=== PATIENT | female | born 1945 | race Caucasian/White ===

== ENCOUNTER 2023-10-04 08:39 | Outpatient (REF) | payer MEDICARE, SELFPAY | END 2023-10-04 08:40 | disposition home or self-care (01) | LOC: HO.SH 08:39 | PROVIDERS: Visit Provider Family Medicine | DX: Z01.118 Encounter for examination of ears and hearing with other abnormal findings (principal); H90.3 Sensorineural hearing loss, bilateral | CPT/HCPCS: 92557 ==

== ENCOUNTER 2023-11-16 14:56 | Outpatient (REF) | payer SELFPAY ==
--- NOTE | 2023-11-17 11:26 | MHC.AU.MED ---
Medical Clearance for Hearing Instrumentation Date: 11/17/23 Patient Name: [place] August Date of : 1945 Primary Care Provider: Cris Vidal MD Referring Provider: Cris Vidal MD We have seen your patient on 11/17/23 and have determined that they are a candidate for amplification (See accompanying report). Specifically, they would benefit from: Hearing aid use in both ears There is a statute that addresses Medical Evaluation Requirements prior to fitting a patient with a hearing aid. According to [place] statute 265 CMR:6.03(1), (a) General. Except as provided in 265 CMR 6.03(1)(b), a hearing aid repair technician shall not sell a hearing aid unless the prospective user has presented to the hearing aid repair technician a written statement signed by a licensed physician that states that the patient's hearing loss has been medically evaluated and the patient may be considered a candidate for a hearing aid. The medical evaluation must have taken place within the preceding six months. Please note: Due to the [place] Statute referenced above, we cannot accept a signature other than that of a licensed physician. POSITION CLERK and PA signatures cannot be accepted. I am in agreement with the above recommendation. There is no medical contraindication for hearing instrumentation. Physician Signature Date Physician Name (Printed)
== END 2023-11-16 14:57 | disposition home or self-care (01) ==
LOC: HO.HAP 14:56
PROVIDERS: PCP Family Medicine; Visit Provider Family Medicine
DX: Z46.1 Encounter for fitting and adjustment of hearing aid (principal); H90.3 Sensorineural hearing loss, bilateral
CPT/HCPCS: 92590; 92591

== ENCOUNTER 2023-12-08 09:26 | Outpatient (REF) | payer SELFPAY | END 2023-12-08 09:27 | disposition home or self-care (01) | LOC: HO.HAP 09:26 | PROVIDERS: Visit Provider Family Medicine | DX: Z46.1 Encounter for fitting and adjustment of hearing aid (principal); H90.3 Sensorineural hearing loss, bilateral | CPT/HCPCS: 92700; V5261; V5299 ==

== ENCOUNTER 2024-01-02 11:09 | Outpatient (REF) | payer SELFPAY | END 2024-01-02 11:10 | disposition home or self-care (01) | LOC: HO.HAP 11:09 | PROVIDERS: Visit Provider Family Medicine | DX: Z13.89 Encounter for screening for other disorder (principal) ==

== ENCOUNTER 2024-11-12 07:49 | Outpatient (REF) | payer MEDICARE, SELFPAY ==
--- OUTSIDE RECORDS SUMMARY | 2024-01-23 05:00 | XMS_ITS ---
Author Organization [facility] Address [address] [place] [address] Care Team Providers Care Mineralogy Professor Name Role Phone Cris Vidal Primary Care Provider UnavailClaire Smith Unavailable [phone] Lorna Escoto Unavailable [phone] Encounters Encounter Location Date Provider Diagnosis [address] [address] 01/23/2024 Lorna Escoto Plan Of Treatment Next Appt Details Provider Name:Claire crowley, 12/16/2024 09:15:00 AM, [address] [place] [address], [phone], Progress Notes * [place] AUGUST HDOB :1945 (79 yo F)Acc No.[id number]:01/23/2024 Progress Note Patient: [place] MANCINI Provider: Osmin Escoto DPM :1945 A ge:78 Y S ex:Female Date:01/23/2024 Address:[address] [place], [place] [id number] Pcp:Cris Vidal Subjective: * Chief Complaints: * * Medical History: Objective: * Vitals: Assessment: Plan: * Treatment: * Images: * The named appointment provid er may or may not be the originator of this progress note, and it is not deemed complete until electronically signed by the appointment provider. Sign off status: Pending * Provider: Osmin Escoto DPM Date: 03/24/2023 Generated for Violette Hare/Mani on: 0 11/12/2024 07:52 AM EDT
--- OUTSIDE RECORDS SUMMARY | 2024-09-16 07:00 | XMS_ITS ---
Author Organization [facility] Address [address] [place] [address] Care Team Providers Care Director Emergency Name Role Phone Cris Vidal Primary Care Provider Claire Mcconnell [phone] Kyle Encounters Encounter Location Date Provider Diagnosis [address] [address] 09/16/2024 Claire Barrios Plan Of Treatment Next Appt Details Provider Name:Claier crowley, 12/16/2024 09:15:00 AM, [address] [place] [address], [phone], Progress Notes * [place] AUGUST HDOB :1945 (79 yo F)Acc No.[id number]:09/16/2024 Progress Note Patient: [place] MANCINI Provider: Byron Barrios DPM :1945 A ge:79 Y S ex:Female Date:09/16/2024 Address:[address] [place], [place] [id number] Pcp:Cris Vidal Subjective: * Chief Complaints: * [address] Kyle. * Medical History: Objective: * Vitals: Assessment: Plan: * Treatment: * Images: * The named appointment provid er may or may not be the originator of this progress note, and it is not deemed complete until electronically signed by the appointment provider. Sign off status: Pending * Provider: Byron Barrios DPM Date: 0 09/16/2024 Generated for Violette Hare/Mani on: 11/12/2024 07:52 AM EDT
--- OUTSIDE RECORDS SUMMARY | 2024-11-12 07:53 | XMS_ITS | Patient Health Record ---
Author Organization [facility] Address [address] [place] [address] Care Team Providers Care Stable Cleaner Name Role Phone Eulogiofabiana Cris Primary Care Provider Claire Mcconnell Unavailable [phone] Lorna Escoto Unavailable [phone] Allergies Allergen (clinical drug ingredient) Drug/Non Drug Allergy documented on EMR Reaction Allergy Type Onset Date Status Substance with sulfonamide structure and antibacterial mechanism of action (substance) Sulfa Antibiotics Unknown Drug Allergy Active Reason For Referral No Information Medications Medication SIG (Take, Route, Frequency, Duration) Notes Start Date End Date Status Betamethasone Dipropionate 0.05 % External; Duration: 21 Not-Taking Multivitamin Active Amoxicillin-Pot Clavulanate 875-125 MG Oral; Duration: 10 Not-Takin g Omeprazole 20 MG Oral; Duration: 90 Active methylPREDNISolone 4 MG Oral; Duration: 6 Not-Taking Albuterol Sulfate HFA 108 (90 Base) MCG/ACT Inhalation; Duration: 30 Active ProAir HFA 108 (90 Base) MCG/ACT Inhalation; Duration: 16 Not-Taking hydroCHLOROthiazide 25 MG 1 tablet in th e morning Orally Once a day; Duration: 30 day(s) Active Gabapentin 300 MG Oral; Duration: 90 Not-Taking Klor-Con/EF 25 MEQ 1 tablet dissolved in water with meals Orally Twice a day; Duration: 30 day(s) Active Centrum Silver Orally Not-T aking Levothyroxine Sodium 100 MCG Oral; Duration: 90 Active predniSONE 10 MG Oral; Duration: 10 Not-Taking Montelukast Sodium 10 MG 1 tablet Orally Once a day; Duration: 30 day(s) Active Ammonium Lactate 12 % APPLY 1 APPLICATIO N EXTERNALLY TWICE A DAY 30 DAYS; Duration: 30 Active Magnesium Active tylenol 1 tab Oral; Duration: 14 days Not-Taking Tylenol 8 Hour Arthritis Pain Active Potassium Chloride Annita ER 20 MEQ Oral; Duration: 30 Not-Takin g amLODIPine Besylate 5 MG 1 tablet Orally Once a day; Duration: 30 day(s) Active Chlorthalidone 25 MG Oral; Duration: 90 Not-Taking Immunizations Vaccine Route Administration Date Status Comme nts Influenza Unknown 03/13/2023 Administered COVID-19 Pfizer BioNTech Vaccine Unknown 07/05/2021 Administered 1st 04/15/20 2nd 05/06/20 3rd 12/08/20 Social History Tobacco Use: Social History Observation Description Date Details (start date - stop date) Never Smoker NA - NA Tobacco use other than smoking: Question Answer Notes Are you an other tobacco user? No Tobacco Control (Standard) Question Answer Notes Tobacco use: Nonsmoker Additional Findings: Tobacco non-user Current no nsmoker AUDIT-C (Standard) Question Answer Notes Did you have a drink containing alcohol in the p ast year? No Points 0 Interpretation Negative Vital Signs Blood pressure diastolic 70 mm Hg 09/12/2024 Height 5 ft in 09/12/2024 Blood pressure systolic 126 mm Hg 09/12/2024 Weight 155 lbs 09/12/2024 BMI 30.27 kg/m2 09/12/2024 Encounters Encounter Location Date Provider Diagnosis [address] [address] 01/29/2024 Claire Barrios Tinea unguium B35.1 ; Pain in right toe(s) M79.674 and Pain in left toe(s) M79.[address] [address] 06/17/2024 Claire Barrios Tinea unguium B35.1 ; Pain in right toe(s) M79.674 and Pain in left toe(s) M79.[address] [address] 09/12/2024 Claire Barrios Tinea unguium B35.1 ; Pain in right toe(s) M79.674 and Pain in left toe(s) M79.675 [facility] [place] [address] [place] [address] 12/19/2023 Lorna Escoto Assessments Encounter Date Diagnosis (ICD Code) Assessment Notes Treatment Notes Treatment Clinical Notes Section Notes 01/29/2024 Tinea unguium (ICD-10 - B35.1) 01/29/2024 Pain in right toe(s) (ICD-10 - M79.674) 06/17/2024 Tinea unguium (ICD-10 - B35.1) 06/17/2024 Pain in right toe(s) (ICD-10 - M79.674) 09/12/2024 Tinea unguium (ICD-10 - B35.1) 09/12/2024 Pain in right toe(s) (ICD-10 - M79.674) 09/12/2024 Pain in left toe(s) (ICD-10 - M79.675) 06/17/2024 Pain in left toe(s) (ICD-10 - M79.675) 01/29/2024 Pain in left toe(s) (ICD-10 - M79.675) Plan Of Treatment Pending Test Test Name Order Date X ray : Foot, right 3V 01/28/2022 Next Appt Details Provider Name:Claire crowley, 12/16/2024 09:15:00 AM, [address] [place] [address], [phone], Insurance Providers Payer Name Payer Address Payer Phone Subscriber Number Group Number Insured Name Patient Relationship to Insured Coverage Start Date Coverage End Date Medicare [facility] [address] [facility] [place] [address] [id number] Sotiropoul os, [place] Self - patient is the insured [employer] [address] [place] [address] [phone] [id number] Sotiropoul os, [place] Self - patient is the insured Medical (General) History Medical History History ICD Code asthma Knee Pain Rheumatic fever Sciatica Thyroid disorder Warts Measles Mumps Chicken pox Joint implants/screws Transfusions Surgical History Surgery Date(Month/Year) left knee replacement 2004 right knee replacement 2006 back surgery 09/25/2015 shoulder surgery 2014 Orthoscopic Rt Knee 2003 Hospitalization History Reason Date(Month/Year) [facility] - Shoulder surgery 2013 [facility] - Back surgery 09/25/2015 [facility] - Knee replacement right and left
== END 2024-11-12 07:50 | disposition home or self-care (01) ==
LOC: HO.SH 07:49
PROVIDERS: Visit Provider Family Medicine
DX: Z01.118 Encounter for examination of ears and hearing with other abnormal findings (principal); H90.3 Sensorineural hearing loss, bilateral
CPT/HCPCS: 92552; 92556

== ENCOUNTER 2024-11-12 08:35 | Outpatient (REF) | payer SELFPAY ==
--- NOTE | 2024-11-12 08:42 | MHC.AU.HA3 ---
Hearing Instrument Follow-Up- Binaural Date of Visit: 11/12/24 Right Ear: Matthew, Model, Color, Serial Number: Adrienne Alfaro [id number]-[id number] SN: [id number] Color: Silver Escoto Tub Operator Repair Warranty: 12/18/2026 Tub Operator Loss and Damage Warranty: 12/18/2026 [facility] Service Plan: OPTED OUT Battery Size: Rechargeable Web Content Executive/Slim Tube: 1M Earmold/Dome/CShell/SlimTip:Large open dome with retention tail Type of Wax Guard: CeruStop Dispensed By: [facility] Date of Fittin12/08/2023 Left Ear: Matthew, Model, Color, Serial Number: Adrienne Alfaro [id number] SN: [id number] Color: Silver Escoto Tub Operator Repair Warranty: 12/18/2026 Tub Operator Loss and Damage Warranty: 12/18/2026 [facility] Service Plan: OPTED OUT Battery Size: Rechargeable Web Content Executive/Slim Tube: 1M Earmold/Dome/CShell/SlimTip: Large open dome with retention tail Type of Wax Guard: CeruStop Dispensed By: [facility] Date of Fittin12/08/2023 Follow-Up Summary: Updated hearing test - see audio. Hearing stable. Significant perceived benefit from HAs, hearing blinker in car, ticking of clock, etc. Cleaned HAs. Replaced domes, wax guards, and retention tails. Noticeable hairspray build up on HINOJOSA casing - cleaned. Vacuumed microphones. Ran through dehumidifier. Listening check demonstrated HAs amplifying clearly. Updated firmware. Recommendations: Hearing instrument follow-up or maintenance as needed. Please contact our clinic with any questions or concerns. Diagnosis Code(s): Primary Diagnosis: H90.3 Bilateral Sensorineural Hearing Loss Signature: Provider: Hansa Strong, [facility]
== END 2024-11-12 08:36 | disposition home or self-care (01) ==
LOC: HO.HAP 08:35
PROVIDERS: Visit Provider Family Medicine
DX: Z46.1 Encounter for fitting and adjustment of hearing aid (principal); H90.3 Sensorineural hearing loss, bilateral
CPT/HCPCS: 92593